=== PATIENT | female | born 1980 | race Caucasian/White ===

== ENCOUNTER 2019-06-21 07:41 | Outpatient (CLI) | payer BC ==
--- NOTE | 2019-06-21 11:09 | MRI ---
MRI LEFT KNEE: Date: 06/21/19 PROVIDED CLINICAL HISTORY: Pain status post injury. FINDINGS: The anterior cruciate ligament, posterior cruciate ligament, lateral collateral ligamentous complex, and extensor mechanism appear intact. Patella rosalba is noted. There is fluid signal intensity about the medial collateral ligament which appears partially torn at its anterior extent at the level and slightly above the level of the joint line. The medial and lateral menisci demonstrate no evidence for tear. No focal articular cartilage defect is apparent. The amount of fluid within the knee joint appears physiologic. No focal concerning regional marrow or muscular signal abnormality apparent. Conspicuous red marrow r econversion involving distal femur. There is edema within the lateral infrapatellar fat. IMPRESSION: 1. Low grade partial tearing involving MCL. 2. Edema within the lateral infrapatellar fat. This could reflect impingement changes related to a p atellar tracking abnormality. Contusion could also be considered in the setting of recent injury. 3. Patella rosalba. POS: [facility]
== END 2019-06-21 07:42 | disposition home or self-care (01) ==
LOC: TBSIIMAG 07:41
PROVIDERS: ATTEND Orthopaedic Surgery
DX: M25.562 Pain in left knee (principal); S83.412A Sprain of medial collateral ligament of left knee, initial encounter; R60.0 Localized edema

== ENCOUNTER 2021-07-16 08:32 | Outpatient (CLI) | payer BC | END 2021-07-16 08:33 | disposition home or self-care (01) | LOC: SCSMRI 08:32 | PROVIDERS: ATTEND Internal Medicine | DX: M51.17 Intervertebral disc disorders with radiculopathy, lumbosacral region (principal) | CPT/HCPCS: 72148 ==

== ENCOUNTER 2021-07-22 15:49 | Outpatient (CLI) | payer BC ==
[2021-07-22 16:35] LABS: Hemoglobin 13.1 g/dL (12.0-15.5); Mean Corpuscular HGB CONC 32.5 g/dL (32.0-36.0); Mean Corpuscular Hemoglobin 28.9 pg (27.0-33.0); Mean Platelet Volume 11.1 fl (7.4-10.4); Platelet Count 294 10x3/uL (150-450); RBC Distribution Width 12.3 % (11.5-14.5); Red Blood Cell (RBC) Count 4.53 10x6/uL (3.90-5.03); White Blood Cell (WBC) Count 8.9 10x3/uL (3.5-10.5)
[2021-07-22 16:50] LABS: BHCG - Serum Negative (NEGATIVE); Pregs Control Background? CLEAR/WHITE (CLR/WHITE); Pregs Control Bar Appear? YES (CONTROL BAR)
[2021-07-22 17:04] LABS: Anion Gap 12 mmol/L (10-20); BUN (Urea Nitrogen) 10 mg/dL (7.0-18.7); Calc. Creatinine Clearance 0 mL/min (70-130); Carbon Dioxide 26 mmol/L (22-29); Chloride 103 mmol/L (98-107); Glucose 107 mg/dL (70-105); Potassium 4.3 mmol/L (3.5-5.1); Sodium 137 mmol/L (136-145)
[2021-07-23 17:11] LABS: SARS-CoV-2 PCR by NAA Not Detected (NotDetected)
== END 2021-07-22 15:50 | disposition home or self-care (01) ==
LOC: LABBT 15:49
PROVIDERS: ATTEND Neurological Surgery
DX: Z01.818 Encounter for other preprocedural examination (principal); M54.16 Radiculopathy, lumbar region; Z20.822 Contact with and (suspected) exposure to COVID-19
CPT/HCPCS: 80048; 84703; 85027; 93005; 93010; U0003; U0005

== ENCOUNTER 2021-07-26 07:36 | Day surgery (SDC) | payer BC ==
[2021-07-22 09:42] VITALS: BMI 25.1
[2021-07-26] MEDS ORDERED: ceFAZolin 2 GM/DEX 5% 100 ML BAG ONE (07:55)
[2021-07-26] MEDS ORDERED: Dexmedetomidine 200 MCG/2 ML VIAL ONE (09:20)
[2021-07-26] MEDS ORDERED: Fentanyl 100 MCG/2 ML VIAL ONE ×4 (09:20→11:29)
[2021-07-26] MEDS ORDERED: Promethazine HCl 25 MG/ML VIAL IVPB PRN (10:50)
[2021-07-26] MEDS ORDERED: Ondansetron HCl/PF 4 MG/2 ML Vial IVP PRN (10:50)
[2021-07-26] MEDS ORDERED: Promethazine HCl 25 MG/ML VIAL IM PRN (10:50)
== END 2021-07-26 13:45 | disposition home or self-care (01) ==
LOC: SDC 07:36
PROVIDERS: ATTEND Neurological Surgery
PROC: 0SB40ZZ Excision of Lumbosacral Disc, Open Approach (ICD-10-PCS; principal; 2021-07-26)
DX: M51.17 Intervertebral disc disorders with radiculopathy, lumbosacral region (principal); E03.9 Hypothyroidism, unspecified; Z79.891 Long term (current) use of opiate analgesic; Z79.899 Other long term (current) drug therapy; Z91.018 Allergy to other foods
CPT/HCPCS: 76000; C1713; J3010; J3370